=== PATIENT | female | born 1990 | race Caucasian/White ===

== ENCOUNTER 2016-11-11 16:33 | Emergency (ER) | payer BC, OTHER ==
[~2016-11-11 16:33] MED LIST: HYDR-3533 PO; PERC5TAB12 PO
[2016-11-11 17:01] VITALS: RESP 18; TEMP 98.3
[2016-11-11 17:02] VITALS: BP 136/79; PULSE 100
[2016-11-11 17:23] LABS: HEMATOCRIT 37.3 % (35.0-46.0); MEAN CELL VOLUME 84.3 FL (80.0-100.0); MEAN CORPUSCULAR HEMOGLOBIN 27.5 PG (27.0-34.0); MEAN CORPUSCULAR HGB CONC 32.5 % (32.0-36.0); PLATELET COUNT 278 TH/MM3 (150-450); RED BLOOD COUNT 4.43 MIL/MM3 (4.00-5.30); RED CELL DISTRIBUTION WIDTH 13.8 % (11.6-17.2); REVIEW FLAG FINAL; WHITE BLOOD COUNT 10.9 TH/MM3 (4.0-11.0)
[2016-11-11 17:24] VITALS: BP 129/78; PULSE 103
[2016-11-11 17:30] LABS: BACTERIA, URINE OCC /hpf; BLOOD, URINE NEG (NEG); COMMENT (UR) CULT NOT INDICATED; CULTURE IF INDICATED CULT NOT INDICATED; GLUCOSE,URINE NEG (NEG); KETONE, URINE NEG (NEG); NITRITE,URINE NEG (NEG); PH, URINE 6.5 (5.0-8.5); URINE COLOR YELLOW (YELLW/STRAW)
[2016-11-11 17:40] VITALS: BP 124/79; PULSE 103
--- NOTE | 2016-11-11 17:40 | PD ---
HPI Chief Complaint Pt is a , at 24 weeks. Pt was asked to present to OB triage by her OB after reporting that she had been sent home from work. Pt c/o headache and dizziness at work today.Per patient BP in the office was 140 /80. She states she has been having headaches for past one week. She denies any vision changes, no RUQ pain. Pt has no diagnosis of Hypertension, but states BP was 140/80 in OB office last week. Travel History International Travel<30 Days: No Contact w/Intl Traveler<30Days: No History of Present Illness Para: 0 : 1 History Past Medical History Medical History: Denies Significant Hx Past Surgical History Surgical History: No Previous Surgery Family History Family History: Negative Social History Alcohol Use: No Tobacco Use: No Substance Abuse: No Allergies-Medications (Allergen,Severity, Reaction): Coded Allergies: Adhesives (Unverified Allergy, Severe, 01/30/16) BANDAIDS,CERTAIN ADHESIVES,REDNESS,BLISTERS Dairy (Unverified Allergy, Severe, 01/30/16) ABDOMINAL PAIN Gluten (Unverified Allergy, Severe, DENIES ALLERGY, 01/30/16) Polysporin (Unverified Allergy, Severe, Rash, 01/30/16) Garlic (Verified Allergy, Intermediate, NASAL CONGESTION, 01/30/16) Peanut (Verified Allergy, Intermediate, HIVES/NASAL CONGESTION, 01/30/16) Uncoded Allergies: COUGH MEDICINE (Allergy, Intermediate, 01/31/14) RICHA (Allergy, Intermediate, NASAL CONGESTION, 01/30/16) Home Meds Active Scripts Hydrocodone/Acetaminophen 5 mg/325 mg (Lortab 5 mg/325 mg)1 Tab1 Tab PO Q6H PRN (PAIN) #10 TAB Prov:Jayro Pagan MD 01/30/16 Reported Medications Oxycodone-Acetaminophen 5-325 mg (Percocet 5-325 mg)Oxycodone 5/325 Acetaminophen Tab1 Tab PO Q6H PRN (PAIN) 01/30/14 Review of Systems HENT: Headaches Neurologic: Dizziness Physical Exam Vital Signs Date Time Temp Pulse Resp B/P Pulse Ox O2 Delivery O2 Flow Rate FiO2 11/11/16 17:24 103 129/78 11/11/16 17:02 100 136/79 11/11/16 17:01 98.3 18 Narrative GENERAL: Well-nourished, well-developed patient. SKIN: Warm and dry. HEAD: Normocephalic and atraumatic. EYES: No scleral icterus. No injection or drainage. ENT: No nasal drainage noted. Mucous membranes pink. Airway patent. NECK: Supple, trachea midline. No JVD. CARDIOVASCULAR: Regular rate and rhythm without murmurs, gallops, or rubs. RESPIRATORY: Breath sounds equal bilaterally. No accessory muscle use. BREASTS: Bilateral exam showed no masses , no retractions, no nipple discharge. ABDOMEN/GI: Abdomen soft, non-tender, bowel sounds present, no rebound, no guarding Gravid to [-] weeks size Fundal Height: [-] GENITOURINARY: External Genitalia: intact and normal in appearance BUS glands: [-] Cervix: [-] Dilatation: [-] Effacement: [-] Station: [-] Presentation: [-] Membranes: [intact or ruptured] Uterine Contractions: [-] FHT's: Category: [-] Baseline: [-] Reactive: [-] Variability: [-] Decels: [-] EXTREMITIES: No cyanosis or edema. BACK: Nontender without obvious deformity. No CVA tenderness. NEUROLOGICAL: Awake and alert. Motor and sensory grossly within normal limits. Five out of 5 muscle strength in all muscle groups. Normal speech. Data Data Vital Signs Reviewed: Yes Orders Hepatic Functional Panel (11/11/16 16:55) Cbc No Diff, Includes Plts (11/11/16 16:55) Uric Acid (11/11/16 16:55) Urinalysis - C+S If Indicated (11/11/16 16:55) Vital Signs (Adult) .ON ADMISSION (11/11/16 16:59) ^ Labor Status (11/11/16 16:59) Labs Laboratory Tests Test 11/11/16 16:53 White Blood Count 10.9 Red Blood Count 4.43 Hemoglobin 12.1 Hematocrit 37.3 Mean Corpuscular Volume 84.3 Mean Corpuscular Hemoglobin 27.5 Mean Corpuscular Hemoglobin 32.5 Concent Red Cell Distribution Width 13.8 Platelet Count 278 Mean Platelet Volume 7.6 Urine Color YELLOW Urine Turbidity CLEAR Urine pH 6.5 Urine Specific [place] 1.007 Urine Protein NEG Urine Glucose (UA) NEG Urine Ketones NEG Urine Occult Blood NEG Urine Nitrite NEG Urine Bilirubin NEG Urine Urobilinogen LESS THAN 2.0 Urine Leukocyte Esterase TRACE Urine RBC LESS THAN 1 Urine WBC 1 Urine Bacteria OCC Microscopic Urinalysis Comment CULT NOT INDICATED MDM Medical Record Reviewed: Yes Narrative Course / MDM BPs were all normal during her stay. Normal [place] DTRs Diagnosis Diagnosis: Primary Impression: Dizziness Additional Impression: Elevated BP without diagnosis of hypertension Disposition: 01 DISCHARGE HOME Condition: Good Patient Instructions: 24 Hour Urine Collection (GEN), General Instructions Additional Instructions: We plan 24 hour urine collection for total protein and creatinine clearance for baseline Patient told to make appointment with her OB for or Thursday Departure Forms: Tests/Procedures oDni Bob MD November 11, 2016 17:40
[2016-11-11 17:54] LABS: ALT (GPT) 55 U/L (10-53); AST (GOT) 38 U/L (15-37)
[2016-11-11 17:55] LABS: ALKALINE PHOSPHATASE 108 U/L (45-117); INDIRECT BILIRUBIN 0.1 MG/DL (0.0-0.8); TOTAL BILIRUBIN ADULT 0.2 MG/DL (0.2-1.0); URIC ACID 3.1 MG/DL (2.6-6.0)
== END 2016-11-11 18:22 | disposition home or self-care (01) ==
LOC: HOBED 16:33
DX: O99.89 Other specified diseases and conditions complicating pregnancy, childbirth and the puerperium (principal); R42 Dizziness and giddiness; R03.0 Elevated blood-pressure reading, without diagnosis of hypertension; R51 Headache; Z3A.24 24 weeks gestation of pregnancy
CPT/HCPCS: 80076; 81001; 84550; 85027; 99283

== ENCOUNTER → 2016-11-12 | Outpatient (CLI) | payer BC ==
[2016-11-12 22:25] LABS: URINE TOTAL PROTEIN TIMED 8.8 MG/DL
[2016-11-12 22:35] LABS: CREAT 24 TIMED 40.2 MG/DL
== END ==
LOC: HLAB 19:10
PROVIDERS: ATTEND Obstetrics & Gynecology
DX: O13.9 Gestational [pregnancy-induced] hypertension without significant proteinuria, unspecified trimester (principal); Z3A.00 Weeks of gestation of pregnancy not specified
CPT/HCPCS: 82575; 84157

== ENCOUNTER 2017-01-29 22:52 | Emergency (ER) | payer BC ==
[2017-01-29] MEDS ORDERED: MACR100C2 PO (23:52)
--- NOTE | 2017-01-29 23:52 | PD ---
HPI Chief Complaint Lower Abdominal pain for several hrs Date Seen: Jan 29, 2017 Travel History International Travel<30 Days: No Contact w/Intl Traveler<30Days: No Known Affected Area: No History of Present Illness HPI Patient is 26-year-old white female at [address] Newsome for care presents complaining of lower abdominal pain for several hours just at the symphysis area. Denies bleeding or ruptured membranes. heart rate tracing is reactive and she is an occasional contraction but no regular contractions. When asked where she hurts she points right at the symphysis in the midline that's where she's been hurting sharp pain comes and goes Para: 0 : 1 History Past Medical History Narrative Medical Patient had a UTI back in September of this year was treated with Macrobid by mouth Social History Alcohol Use: No Tobacco Use: No Substance Abuse: No Allergies-Medications (Allergen,Severity, Reaction): Coded Allergies: Adhesives (Unverified Allergy, Severe, 01/30/16) BANDAIDS,CERTAIN ADHESIVES,REDNESS,BLISTERS Dairy (Unverified Allergy, Severe, 01/30/16) ABDOMINAL PAIN Gluten (Unverified Allergy, Severe, DENIES ALLERGY, 01/30/16) Polysporin (Unverified Allergy, Severe, Rash, 01/30/16) Garlic (Verified Allergy, Intermediate, NASAL CONGESTION, 01/30/16) Peanut (Verified Allergy, Intermediate, HIVES/NASAL CONGESTION, 01/30/16) Uncoded Allergies: COUGH MEDICINE (Allergy, Intermediate, 01/31/14) RICHA (Allergy, Intermediate, NASAL CONGESTION, 01/30/16) Home Meds Active Scripts Hydrocodone/Acetaminophen 5 mg/325 mg (Lortab 5 mg/325 mg)1 Tab1 Tab PO Q6H PRN (PAIN) #10 TAB Prov:Jayro Pagan MD 01/30/16 Reported Medications Oxycodone-Acetaminophen 5-325 mg (Percocet 5-325 mg)Oxycodone 5/325 Acetaminophen Tab1 Tab PO Q6H PRN (PAIN) 01/30/14 Review of Systems General / Constitutional: No: Fever, Weight Gain, Chills, Other Eyes: No: Diploplia, Blurred Vision, Visual changes, Pain, Photophobia HENT: No: Headaches, Vertigo, Lightheadedness Cardiovascular: No: Irregular Rhythm, Chest Pain or Discomfort, Palpitations, Tachycardia, Syncope, Varicosities, Edema, Cyanosis Respiratory: No: Cough, Short of Breath, Other Gastrointestinal: Abdominal Pain, No: Nausea, Vomiting, Diarrhea Genitourinary: No: Decreased Urinary Output, Oliguria Musculoskeletal: No: Limited ROM, Weakness, Cramping, Edema, Pain Skin: No Rash, No Itching, No Dryness, No Lumps, No Change in Pigmentation, No Change in Nails, No Alopecia, No Lesions Neurologic: No: Weakness, Dizziness, Syncope, Focal Abnormalities, Coordination Problem, Headache, Slurred Speech, Seizures Psychiatric: No: Depression, Suicidal Ideations, Homicidal Ideation Endocrine: No: Heat Intolerance, Cold Intolerance, Polydipsia, Polyuria, Other Physical Exam Narrative GENERAL: Well-nourished, well-developed patient. SKIN: Warm and dry. HEAD: Normocephalic and atraumatic. EYES: No scleral icterus. No injection or drainage. ENT: No nasal drainage noted. Mucous membranes pink. Airway patent. NECK: Supple, trachea midline. No JVD. CARDIOVASCULAR: Regular rate and rhythm without murmurs, gallops, or rubs. RESPIRATORY: Breath sounds equal bilaterally. No accessory muscle use. BREASTS: Bilateral exam showed no masses , no retractions, no nipple discharge. ABDOMEN/GI: Abdomen soft, non-tender, bowel sounds present, no rebound, no guarding Gravid to [-35] weeks size Fundal Height: [35-] GENITOURINARY: External Genitalia: intact and normal in appearance BUS glands: [-] Cervix: [Posterior-] Dilatation: [-Closed] Effacement: [-] Thick Station: [-3] Presentation: [vtx-] Membranes: [intact ] Uterine Contractions: [Occasional-] FHT's: Category: [1-] Baseline: [133-] Reactive: [yes-] Variability: [mod-] Decels: [none-] EXTREMITIES: No cyanosis or edema. BACK: Nontender without obvious deformity. No CVA tenderness. NEUROLOGICAL: Awake and alert. Motor and sensory grossly within normal limits. Five out of 5 muscle strength in all muscle groups. Normal speech. Data Data Labs Urine dip was positive for large leukocyte esterase all else negative, urine sent labs pending at this time MDM Interpretation(s) Patient 26-year-old white female at 35 weeks presents clinically with lower abdominal pain for several hours. She is not beto at this point heart rate tracing is reactive cervix is closed and posterior. She's had no bleeding or leakage of fluid. She has not tried Tylenol or any measures at home to help her pain. Urine dipstick on OB ED was positive for leukocyte esterase. Urine from downstairs labs pending at this time but with her history of UTI back in September and treatment with Macrobid ,. Plan to repeat Macrobid another course for a week by mouth twice a day. She is offered a pain shot fentanyl IM if she wants relief. Plan The patient to repeat her week of Macrobid by mouth, offered fentanyl shot for pain tonight and she is thinking about that at this time. She is to increase bedrest over the next 48 hours increase fluids by mouth and the take Tylenol liberally. She can use a heating pad on low across the lower abdomen or soak in a hot bath tub for relief of symptoms Diagnosis Diagnosis: Primary Impression: 35 weeks gestation of Additional Impressions: Lower abdominal pain, unspecified UTI (urinary tract infection) in in third trimester Disposition: 01 DISCHARGE HOME Condition: Stable Scripts Nitrofurantoin Monohydrate Macrocrystals (Macrobid)100 Mg [id number] Mg PO BID #14 CAP Ref 0 Prov:Haroldo Che II, MD 01/29/17 Patient Instructions: General Instructions, Early Labor Signs (ED), Movement (ED), Urinary Tract Infection in (ED) Departure Forms: Tests/Procedures Haroldo Che II, MD Jan 29, 2017 23:52
== END 2017-01-30 00:13 | disposition home or self-care (01) ==
LOC: HOBED 22:52
DX: O26.893 Other specified pregnancy related conditions, third trimester (principal); R10.30 Lower abdominal pain, unspecified; O23.43 Unspecified infection of urinary tract in pregnancy, third trimester; Z3A.35 35 weeks gestation of pregnancy
CPT/HCPCS: 59025

== ENCOUNTER 2017-02-17 16:18 | Emergency (ER) | payer BC ==
[~2017-02-17] VITALS: Ht 162.6 cm; Wt 78.0 kg
[~2017-02-17 16:18] MED LIST changes: +MACR100C2 PO
[2017-02-17 16:43] VITALS: BP 130/89; PULSE 98
[2017-02-17 16:44] VITALS: RESP 18
[2017-02-17 16:45] VITALS: TEMP 98.2
[2017-02-17 17:26] LABS: BACTERIA, URINE FEW /hpf; BLOOD, URINE NEG (NEG); COMMENT (UR) CULT NOT INDICATED; CULTURE IF INDICATED CULT NOT INDICATED; GLUCOSE,URINE NEG (NEG); KETONE, URINE NEG (NEG); NITRITE,URINE NEG (NEG); PH, URINE 6.5 (5.0-8.5); SQUAMOUS EPITHELIAL CELL URINE 1 /hpf (0-5); URINE COLOR LIGHT-YELLOW (YELLW/STRAW)
[2017-02-17 17:43] LABS: HEMATOCRIT 36.5 % (35.0-46.0); MEAN CELL VOLUME 76.8 FL (80.0-100.0); MEAN CORPUSCULAR HEMOGLOBIN 24.9 PG (27.0-34.0); MEAN CORPUSCULAR HGB CONC 32.4 % (32.0-36.0); PLATELET COUNT 198 TH/MM3 (150-450); RED BLOOD COUNT 4.75 MIL/MM3 (4.00-5.30); RED CELL DISTRIBUTION WIDTH 16.8 % (11.6-17.2); REVIEW FLAG FINAL; WHITE BLOOD COUNT 8.3 TH/MM3 (4.0-11.0)
[2017-02-17 17:49] LABS: ANION GAP 7 MEQ/L (5-15); AST (GOT) 18 U/L (15-37); BLOOD UREA NITROGEN 8 MG/DL (7-18); CHLORIDE 106 MEQ/L (98-107); GLOMERULAR FILTRATION RATE 102 ML/MIN (>89); POTASSIUM 3.6 MEQ/L (3.5-5.1); SODIUM (NA) 139 MEQ/L (136-145); URIC ACID 4.3 MG/DL (2.6-6.0)
[2017-02-17 17:53] LABS: ALKALINE PHOSPHATASE 233 U/L (45-117); ALT (GPT) 19 U/L (10-53); TOTAL BILIRUBIN ADULT 0.2 MG/DL (0.2-1.0)
--- NOTE | 2017-02-17 17:58 | HHI.HP ---
HPI Chief Complaint Elevated BP in the office Note entered in error, see [facility]SC[facility] note Travel History International Travel<30 Days: No Contact w/Intl Traveler<30Days: No Known Affected Area: No Allergies-Medications (Allergen,Severity, Reaction): Coded Allergies: adhesive (Verified Allergy, Severe, 02/17/17) BANDAIDS,CERTAIN ADHESIVES,REDNESS,BLISTERS bacitracin (Verified Allergy, Severe, Rash, 02/17/17) gluten (Verified Allergy, Severe, DENIES ALLERGY, 02/17/17) lactose (Verified Allergy, Severe, 02/17/17) ABDOMINAL PAIN peanut (Verified Allergy, Severe, hives, blisters, 02/17/17) polymyxin B (Verified Allergy, Severe, Rash, 02/17/17) garlic (Verified Allergy, Intermediate, NASAL CONGESTION, 02/17/17) ipratropium (Verified Allergy, Intermediate, HIVES/NASAL CONGESTION, ) Uncoded Allergies: COUGH MEDICINE (Allergy, Intermediate, 01/31/14) RICHA (Allergy, Intermediate, NASAL CONGESTION, 01/30/16) Home Meds Active Scripts Nitrofurantoin Monohydrate Macrocrystals (Macrobid) 100 Mg Cap, 100 MG PO BID for Infection, #14 CAP 0 Refills Prov:Haroldo Che II, MD 01/29/17 Hydrocodone/Acetaminophen 5 mg/325 mg (Lortab 5 mg/325 mg) 1 Tab, 1 TAB PO Q6H Y for PAIN, #10 TAB Prov:Jayro Pagan MD 01/30/16 Reported Medications Oxycodone-Acetaminophen 5-325 mg (Percocet 5-325 mg) Oxycodone 5/325 Acetaminophen Tab, 1 TAB PO Q6H Y for PAIN, TAB 01/30/14 Physical Exam Vital Signs Date Time Temp Pulse Resp B/P (MAP) Pulse Ox O2 Delivery O2 Flow Rate FiO2 02/17/17 16:44 18 02/17/17 16:43 98 130/89 (103) Narrative GENERAL: Well-nourished, well-developed patient. SKIN: Warm and dry. HEAD: Normocephalic and atraumatic. EYES: No scleral icterus. No injection or drainage. ENT: No nasal drainage noted. Mucous membranes pink. Airway patent. NECK: Supple, trachea midline. No JVD. CARDIOVASCULAR: Regular rate and rhythm without murmurs, gallops, or rubs. RESPIRATORY: Breath sounds equal bilaterally. No accessory muscle use. BREASTS: Bilateral exam showed no masses , no retractions, no nipple discharge. ABDOMEN/GI: Abdomen soft, non-tender, bowel sounds present, no rebound, no guarding Gravid to [-] weeks size Fundal Height: [-] GENITOURINARY: External Genitalia: intact and normal in appearance BUS glands: [-] Cervix: [-] Dilatation: [-] Effacement: [-] Station: [-] Presentation: [-] Membranes: [intact or ruptured] Uterine Contractions: [-] FHT's: Category: [-] Baseline: [-] Reactive: [-] Variability: [-] Decels: [-] EXTREMITIES: No cyanosis or edema. BACK: Nontender without obvious deformity. No CVA tenderness. NEUROLOGICAL: Awake and alert. Motor and sensory grossly within normal limits. Five out of 5 muscle strength in all muscle groups. Normal speech. Caprini VTE Risk Assessment Caprini Risk Assessment Model Point Value = 1 Point Value = 2 Point Value = 3 Point Value = 5 Age 41-60 Minor surgery BMI > 25 kg/m2 Swollen legs Varicose veins or History of unexplained or recurrent spontaneous Oral contraceptives or hormone replacement Sepsis (< 1 month) Serious lung disease, including pneumonia (< 1 month) Abnormal pulmonary function Acute myocardial infarction Congestive heart failure (< 1 month) History of inflammatory bowel disease Medical patient at bed rest Age 61-74 Arthroscopic surgery Major open surgery (> 45 min) Laparoscopic surgery (> 45 min) Malignancy Confined to bed (> 72 hours) Immobilizing plaster cast Central venous access Age >= 75 History of VTE Family history of VTE Factor V Leiden Prothrombin [id number] Lupus anticoagulant Anticardiolipin antibodies Elevated serum homocysteine Heparin-induced thrombocytopenia Other congenital or acquired thrombophilia Stroke (< 1 month) Elective arthroplasty Hip, pelvis, or leg fracture Acute spinal cord injury (< 1 month) Prophylaxis Regimen Total Risk Factor Score Risk Level Prophylaxis Regimen 0-1 Low Early ambulation 2 Moderate Order ONE of the following: *Sequential Compression Device (SCD) *Heparin 5000 units SQ BID 3-4 Higher Order ONE of the following medications: *Heparin 5000 units SQ TID *Enoxaparin/Lovenox 40 mg SQ daily (WT < 150 kg, CrCl > 30 mL/min) *Enoxaparin/Lovenox 30 mg SQ daily (WT < 150 kg, CrCl > 10-29 mL/min) *Enoxaparin/Lovenox 30 mg SQ BID (WT < 150 kg, CrCl > 30 mL/min) AND/OR *Sequential Compression Device (SCD) 5 or more Highest Order ONE of the following medications: *Heparin 5000 units SQ TID (Preferred with Epidurals) *Enoxaparin/Lovenox 40 mg SQ daily (WT < 150 kg, CrCl > 30 mL/min) *Enoxaparin/Lovenox 30 mg SQ daily (WT < 150 kg, CrCl > 10-29 mL/min) *Enoxaparin/Lovenox 30 mg SQ BID (WT < 150 kg, CrCl > 30 mL/min) AND *Sequential Compression Device (SCD) Data Data Orders Orders Vital Signs (Adult) .ON ADMISSION (02/17/17 16:33) ^ Labor Status (02/17/17 16:33) Urinalysis - C+S If Indicated (02/17/17 16:33) Diet Liquid (02/17/17 Dinner) Cbc No Diff, Includes Plts (02/17/17 16:33) Comprehensive Metabolic Panel (02/17/17 16:33) Uric Acid (02/17/17 16:33) Protein Creat Ratio, Random Ur (02/17/17 16:33) Labs Laboratory Tests Test 02/17/17 16:40 White Blood Count 8.3 Red Blood Count 4.75 Hemoglobin 11.8 Hematocrit 36.5 Mean Corpuscular Volume 76.8 Mean Corpuscular Hemoglobin 24.9 Mean Corpuscular Hemoglobin Concent 32.4 Red Cell Distribution Width 16.8 Platelet Count 198 Mean Platelet Volume 8.5 Urine Color LIGHT-YELLOW Urine Turbidity CLEAR Urine pH 6.5 Urine Specific [place] 1.004 Urine Protein NEG Urine Glucose (UA) NEG Urine Ketones NEG Urine Occult Blood NEG Urine Nitrite NEG Urine Bilirubin NEG Urine Urobilinogen LESS THAN 2.0 Urine Leukocyte Esterase MOD Urine RBC 1 Urine WBC 2 Urine Squamous Epithelial Cells 1 Urine Bacteria FEW Microscopic Urinalysis Comment CULT NOT INDICATED Urine Random Creatinine 18 Urine Random Total Protein LESS THAN 5 Urine Protein/Creatinine Ratio 0.28 Blood Urea Nitrogen 8 Creatinine 0.69 Random Glucose 87 Total Protein 6.9 Albumin 2.7 Calcium Level 8.9 Uric Acid 4.3 Alkaline Phosphatase 233 Aspartate Amino Transf (AST/SGOT) 18 Alanine Aminotransferase (ALT/SGPT) 19 Total Bilirubin 0.2 Sodium Level 139 Potassium Level 3.6 Chloride Level 106 Carbon Dioxide Level 26.0 Anion Gap 7 Estimat Glomerular Filtration Rate 102 Danni Burgos MD Feb 17, 2017 17:58
--- NOTE | 2017-02-17 18:02 | HHI.PR ---
Subjective Remarks NST procedure note Indications: IUP at 38w, elevated BP, asthma Baseline: 130s, moderate LTV, good accels, no decels Irregular ctx Final Dx: IUP at 38w, reassuring testing, no evidence of preeclampsia F/U as clinically indicated Objective Vital Signs Date Time Temp Pulse Resp B/P (MAP) Pulse Ox O2 Delivery O2 Flow Rate FiO2 02/17/17 16:44 18 02/17/17 16:43 98 130/89 (103) Result Diagram: 02/17/17 1640 02/17/17 1640 Danni Burgos MD Feb 17, 2017 18:02
--- NOTE | 2017-02-17 18:25 | PD ---
HPI Chief Complaint Elevated BP in the office Travel History International Travel<30 Days: No Contact w/Intl Traveler<30Days: No Known Affected Area: No History of Present Illness HPI 26y/o , IUP at 37.6 PNC complicated by asthma Patient presents from the office for evaluation of elevated BP in the office. She reports her BP in the office was 150/100. She denies any MARS, visual changes , RUQ or epigastric pain. She reports normal FM. She denies any ctx, LOF, or VB. She has no other concerns today Weeks Gestation: 37 Para: 0 : 1 History Past Medical History Narrative Medical Asthma Endometriosis Obstetric History Obstetric History Past Surgical History Narrative Surgical L/S x2 Bladder dilation x6-8 Colpo x2 Bladder scope Family History Narrative Family History Cervical CA HTN Social History Alcohol Use: No Tobacco Use: No Substance Abuse: No Allergies-Medications (Allergen,Severity, Reaction): Coded Allergies: adhesive (Verified Allergy, Severe, 02/17/17) BANDAIDS,CERTAIN ADHESIVES,REDNESS,BLISTERS bacitracin (Verified Allergy, Severe, Rash, 02/17/17) gluten (Verified Allergy, Severe, DENIES ALLERGY, 02/17/17) lactose (Verified Allergy, Severe, 02/17/17) ABDOMINAL PAIN peanut (Verified Allergy, Severe, hives, blisters, 02/17/17) polymyxin B (Verified Allergy, Severe, Rash, 02/17/17) garlic (Verified Allergy, Intermediate, NASAL CONGESTION, 02/17/17) ipratropium (Verified Allergy, Intermediate, HIVES/NASAL CONGESTION, ) Uncoded Allergies: COUGH MEDICINE (Allergy, Intermediate, 01/31/14) RICHA (Allergy, Intermediate, NASAL CONGESTION, 01/30/16) Home Meds Active Scripts Nitrofurantoin Monohydrate Macrocrystals (Macrobid) 100 Mg Cap, 100 MG PO BID for Infection, #14 CAP 0 Refills Prov:Haroldo Che II, MD 01/29/17 Hydrocodone/Acetaminophen 5 mg/325 mg (Lortab 5 mg/325 mg) 1 Tab, 1 TAB PO Q6H Y for PAIN, #10 TAB Prov:Jayro Pagan MD 01/30/16 Reported Medications Oxycodone-Acetaminophen 5-325 mg (Percocet 5-325 mg) Oxycodone 5/325 Acetaminophen Tab, 1 TAB PO Q6H Y for PAIN, TAB 01/30/14 Review of Systems Except as stated in HPI: all other systems reviewed are Neg Physical Exam Vital Signs Date Time Temp Pulse Resp B/P (MAP) Pulse Ox O2 Delivery O2 Flow Rate FiO2 02/17/17 16:44 18 02/17/17 16:43 98 130/89 (103) Narrative GENERAL: Well-nourished, well-developed patient. SKIN: Warm and dry. HEAD: Normocephalic and atraumatic. EYES: No scleral icterus. No injection or drainage. ENT: No nasal drainage noted. Mucous membranes pink. Airway patent. NECK: Supple, trachea midline. No JVD. CARDIOVASCULAR: Regular rate and rhythm without murmurs, gallops, or rubs. RESPIRATORY: Breath sounds equal bilaterally. No accessory muscle use. BREASTS: deferred ABDOMEN/GI: Abdomen soft, non-tender, bowel sounds present, no rebound, no guarding Gravid GENITOURINARY: deferred FHT's: 130s, category1/reactive NST EXTREMITIES: No cyanosis. 1+-2+ edema. BACK: Nontender without obvious deformity. No CVA tenderness. NEUROLOGICAL: Awake and alert. Motor and sensory grossly within normal limits. Five out of 5 muscle strength in all muscle groups. Normal speech. No clonus PSYCH: grossly normal memory/affect MS: grossly normal ROM, gait, muscle strength Data Data Orders Orders Vital Signs (Adult) .ON ADMISSION (02/17/17 16:33) ^ Labor Status (02/17/17 16:33) Urinalysis - C+S If Indicated (02/17/17 16:33) Diet Liquid (02/17/17 Dinner) Cbc No Diff, Includes Plts (02/17/17 16:33) Comprehensive Metabolic Panel (02/17/17 16:33) Uric Acid (02/17/17 16:33) Protein Creat Ratio, Random Ur (02/17/17 16:33) Labs Laboratory Tests Test 02/17/17 16:40 White Blood Count 8.3 Red Blood Count 4.75 Hemoglobin 11.8 Hematocrit 36.5 Mean Corpuscular Volume 76.8 Mean Corpuscular Hemoglobin 24.9 Mean Corpuscular Hemoglobin Concent 32.4 Red Cell Distribution Width 16.8 Platelet Count 198 Mean Platelet Volume 8.5 Urine Color LIGHT-YELLOW Urine Turbidity CLEAR Urine pH 6.5 Urine Specific [place] 1.004 Urine Protein NEG Urine Glucose (UA) NEG Urine Ketones NEG Urine Occult Blood NEG Urine Nitrite NEG Urine Bilirubin NEG Urine Urobilinogen LESS THAN 2.0 Urine Leukocyte Esterase MOD Urine RBC 1 Urine WBC 2 Urine Squamous Epithelial Cells 1 Urine Bacteria FEW Microscopic Urinalysis Comment CULT NOT INDICATED Urine Random Creatinine 18 Urine Random Total Protein LESS THAN 5 Urine Protein/Creatinine Ratio 0.28 Blood Urea Nitrogen 8 Creatinine 0.69 Random Glucose 87 Total Protein 6.9 Albumin 2.7 Calcium Level 8.9 Uric Acid 4.3 Alkaline Phosphatase 233 Aspartate Amino Transf (AST/SGOT) 18 Alanine Aminotransferase (ALT/SGPT) 19 Total Bilirubin 0.2 Sodium Level 139 Potassium Level 3.6 Chloride Level 106 Carbon Dioxide Level 26.0 Anion Gap 7 Estimat Glomerular Filtration Rate 102 MDM Plan A/P: 26y/o 1. IUP at 37.6 2. Elevated BP: normal BP on evaluation here, normal labs without evidence of preeclampsia, PC ratio 0.28 but still below threshold of <0.3, discussed with Dr. Newsome and will follow up with 24h urine, strict preeclampsia precatuions, moderate bedrest 3. wellbeing: reassuring testing with reactive NST, FHR reassuring and appropriate for gestational age, FKC daily 4. Asthma: no current issues 5. F/U with primary OB in 2-3d or sooner if needed Diagnosis Diagnosis: Primary Impression: 38 weeks gestation of Additional Impression: Gestational [-induced] hypertension without significant proteinuria, third trimester Disposition: DISCHARGE HOME Patient Instructions: Movement (ED), Preeclampsia (ED), Early Labor Signs (ED) Additional Instructions: F/U with primary Ob in 3d or sooner if needed, strict preeclampsia precautions, FKC daily. 24h urine collection. modified bedrest. Danni Burgos MD Feb 17, 2017 18:25
== END 2017-02-17 19:03 | disposition home or self-care (01) ==
LOC: HOBED 16:18
DX: O13.3 Gestational [pregnancy-induced] hypertension without significant proteinuria, third trimester (principal); J45.909 Unspecified asthma, uncomplicated; Z3A.38 38 weeks gestation of pregnancy; Z79.899 Other long term (current) drug therapy
CPT/HCPCS: 36415; 59025; 80053; 81001; 82570; 84156; 84550; 85027

== ENCOUNTER 2017-03-10 15:41 | Inpatient (IN) | payer BC ==
[~2017-03-10] VITALS: Ht 162.6 cm; Wt 78.0 kg
[2017-03-10] MEDS ORDERED: CITRIC ACID-SODIUM CITRATE LIQ 30 ML UDC PO SCH (17:30)
[2017-03-10] MEDS: PENICILLIN G POTASSIUM INJ 5,000,000 UNITS in SODIUM CHLORIDE 0.9% INJ 100 ML IV ONE (17:30)
[2017-03-10] MEDS ORDERED: OXYTOCIN 30 UNITS-500ML PREMIX 500 ML IV ONE (17:30)
[2017-03-10] MEDS ORDERED: SODIUM CHLORID 0.9% 500 ML INJ 500 ML IV PRN (17:30)
[2017-03-10] MEDS ORDERED: SODIUM CHLORIDE 0.9% FLUSH 10 ML FLUSH IV FLUSH PRN (17:30)
[2017-03-10] MEDS ORDERED: LACTATED RINGER'S 1000 ML INJ 1,000 ML IV PRN (17:30)
[2017-03-10] MEDS ORDERED: MISOPROSTOL 25 MCG SUPP VAGINAL ONE ×2 (17:30→23:15)
[2017-03-10] MEDS ORDERED: ZOLPIDEM TARTRATE 5 MG TAB PO PRN (17:30)
[2017-03-10] MEDS ORDERED: LIDOCAINE HCL 1% 50 ML VIAL I-DERMAL PRN (17:30)
[2017-03-10] MEDS ORDERED: MINERAL OIL 10 ML VIAL TOPICAL PRN (17:30)
[2017-03-10] MEDS ORDERED: LIDOCAINE HCL 1% 50 ML VIAL INFIL PRN (17:30)
[2017-03-10] MEDS ORDERED: SODIUM CHLOR 0.9% 1000 ML INJ 1,000 ML IV PRN (17:50)
[2017-03-10] MEDS: LACTATED RINGER'S 1000 ML INJ 1,000 ML IV SCH (18:52)
[2017-03-10 18:53] LABS: AUTOMATED NEUTROPHIL # 7.8 TH/MM3 (1.8-7.7); BASOPHIL % 0.3 % (0.0-2.0); EOSINOPHIL % 0.3 % (0.0-4.0); HEMATOCRIT 38.4 % (35.0-46.0); HEMO FLAGS DIFF FINAL; LYMPH % 18.6 % (9.0-44.0); LYMPHOCYTE # 1.9 TH/MM3 (1.0-4.8); MEAN CELL VOLUME 77.3 FL (80.0-100.0); MEAN CORPUSCULAR HEMOGLOBIN 25.3 PG (27.0-34.0); MEAN CORPUSCULAR HGB CONC 32.7 % (32.0-36.0); MONO % 4.9 % (0.0-8.0); NEUT % 75.9 % (16.0-70.0); PLATELET COUNT 210 TH/MM3 (150-450); RED BLOOD COUNT 4.97 MIL/MM3 (4.00-5.30); RED CELL DISTRIBUTION WIDTH 18.5 % (11.6-17.2); WHITE BLOOD COUNT 10.3 TH/MM3 (4.0-11.0)
[2017-03-10 19:03] LABS: BACTERIA, URINE MOD /hpf; BLOOD, URINE NEG (NEG); COMMENT (UR) CULTURE INDICATED; CULTURE IF INDICATED CULTURE INDICATED; GLUCOSE,URINE NEG (NEG); KETONE, URINE NEG (NEG); NITRITE,URINE NEG (NEG); PH, URINE 6.5 (5.0-8.5); SQUAMOUS EPITHELIAL CELL URINE 4 /hpf (0-5); URINE COLOR LIGHT-YELLOW (YELLW/STRAW)
[2017-03-10 19:16] LABS: ALT (GPT) 21 U/L (10-53); ANION GAP 10 MEQ/L (5-15); AST (GOT) 18 U/L (15-37); BICARBONATE 24.3 MEQ/L (21.0-32.0); BLOOD UREA NITROGEN 5 MG/DL (7-18); CHLORIDE 103 MEQ/L (98-107); GLOMERULAR FILTRATION RATE 124 ML/MIN (>89); POTASSIUM 3.6 MEQ/L (3.5-5.1); SODIUM (NA) 137 MEQ/L (136-145)
[2017-03-10 19:18] LABS: ALKALINE PHOSPHATASE 270 U/L (45-117); TOTAL BILIRUBIN ADULT 0.3 MG/DL (0.2-1.0)
[2017-03-10] MEDS ORDERED: PREN1CAP28 PO (20:11)
[2017-03-10] MEDS ORDERED: SODIUM CHLORIDE 0.9% FLUSH 10 ML FLUSH IV FLUSH SCH (21:00)
--- NOTE | 2017-03-10 21:03 | MH ---
cc: Tony NEWSOME MD DATE OF ADMISSION 03/10/2017 ADMISSION DIAGNOSIS 1. Intrauterine at 40 weeks, 6 days. 2. Postdates. 3. Increased blood pressure , rule out preeclampsia. 4. Positive GBS. HISTORY OF PRESENT ILLNESS The patient is a 27-year-old white female para 0-0-0-0 who is at 40 weeks, 6 days. She is being brought to the hospital for cervical ripening and to rule out preeclampsia. She was seen in the office today and had a fairly high blood pressure, was sent her over to labor and delivery with a direct admission because she is going to be induced tonight anyways because she is hitting 41 weeks in several hours. She understands the risks and the benefits of the induction including the increased risk of section and prolonged labor. In terms of her blood pressure she has had some higher blood pressures recently and they may just be labile. She has no signs or symptoms of preeclampsia and we are going to go ahead and evaluate that more fully with lab work and serial blood pressures. PAST OBSTETRICAL HISTORY Para 0-0-0-0. PAST GYNECOLOGIC HISTORY She has a history of LGSIL on Pap smear. Her CTGC and __ are all negative in 10/06. PAST SURGICAL HISTORY [place] teeth. Laparoscopy 2008, 2013, 2015. Urethral dilation several times. PAST MEDICAL HISTORY Remarkable for dysplastic nevi, asthma. She has not used medicines in october years. Frequent urinary tract infections. SOCIAL HISTORY She is single. She has never smoked. She does not drink. 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 FAMILY HISTORY Remarkable for high blood pressure depression and cleft palate. PHYSICAL EXAMINATION GENERAL: Well-developed, well-nourished female in no acute distress. VITAL SIGNS: Blood pressure 142/98. Her pulse was 106, respirations 18. HEENT: Normocephalic, atraumatic. NECK: Supple, trachea is in the midline. CHEST: Clear to auscultation, percussion. HEART: Regular rate and rhythm. DIRECTED EXAMINATION: The abdomen is gravid, nontender. The height is appropriate for the gestational age. Her cervix is fingertip, very posterior, 30% effaced, vertex -3. EXTREMITIES: No clubbing, cyanosis, edema. DTRs are +1. ASSESSMENT/PLAN 1. Intrauterine postdates for induction tonight. 2. Possible preeclampsia. I will go ahead and check her labs. She may did have -induced hypertension. If her labs warrant I will give her mag sulfate, will try to avoid that if possible. 3. Positive GBS, will treat her once she is in active labor. R. Pradeep Newsome MD RJV/ERASMO /8:22 PM /8:44 PM
[2017-03-10] MEDS ORDERED: PENICILLIN G POTASSIUM INJ 2,500,000 UNITS in SODIUM CHLORIDE 0.9% INJ 100 ML IV SCH (22:00)
[2017-03-10] MEDS ORDERED: MISOPROSTOL 25 MCG SUPP - repeat dose VAGINAL PRN (23:15)
[2017-03-11] MEDS: LACTATED RINGER'S 1000 ML INJ 1,000 ML IV SCH ×3 (01:30→10:55)
[2017-03-11] MEDS: PENICILLIN G POTASSIUM INJ 5,000,000 UNITS in SODIUM CHLORIDE 0.9% INJ 100 ML IV ONE (04:00)
[2017-03-11] MEDS ORDERED: PENICILLIN G POT 5,000,000 UNITS/NS 100 ML(Mini-Bag Plus) IV ONE ×2 (04:30)
[2017-03-11] MEDS ORDERED: OXYTOCIN 30 UNITS/NS 500ML PREMIX IV SCH (05:30)
[2017-03-11] MEDS ORDERED: MEPERIDINE HCL 50 MG/ML VIAL ONE (08:28)
[2017-03-11] MEDS ORDERED: fentaNYL 2MCG-BUPIV 0.125% INJ 100 ML ONE (08:43)
[2017-03-11] MEDS ORDERED: ePHEDrine/NS 25 MG/5 ML SYR ONE (08:43)
[2017-03-11] MEDS ORDERED: PENICILLIN G POT 2,500,000 UNITS/NS 100 ML IV SCH ×2 (09:00)
[2017-03-11] MEDS ORDERED: PNEUMOCOCCAL POLYVALENT INJ 25 MCG/0.5 ML SYR IM ONE (10:00)
[2017-03-11] MEDS ORDERED: WITCH HAZEL 50%/GLYCERIN 12.5% 40 PAD JAR TOPICAL PRN (12:15)
[2017-03-11] MEDS ORDERED: ZOLPIDEM TARTRATE 5 MG TAB PO PRN (12:15)
[2017-03-11] MEDS ORDERED: ALUMINUM/MAGNESIUM/SIMETH 30 ML CUP PO PRN (12:15)
[2017-03-11] MEDS ORDERED: BENZOCAINE 20% TOPICAL SPRAY 60 ML CAN TOPICAL PRN (12:15)
[2017-03-11] MEDS ORDERED: ONDANSETRON ODT 4 MG TAB PO PRN (12:15)
[2017-03-11] MEDS ORDERED: DOCUSATE SODIUM 50 MG/SENNA 8.6 MG TAB PO PRN (12:15)
[2017-03-11] MEDS ORDERED: SODIUM CHLORIDE 0.9% FLUSH 10 ML FLUSH IV FLUSH PRN (12:15)
[2017-03-11] MEDS ORDERED: oxyCODONE/ACETAMINOPHEN 5 MG/325 MG TAB PO PRN (12:15)
--- NOTE | 2017-03-11 12:15 | PD.OB.DELI ---
Weeks gestation: 41 Gest age assessed date: Mar 11, 2017 Gest age assessed time: 05:00 Pt started active labor?: Yes Medical induction of labor?: Yes Medical induction start date: Mar 10, 2017 Artificial rupture of membrane: No Anesthesia: Epidural Episiotomy: None Vaginal Delivery: Normal Presentation: Occiput anterior Nuchal Cord: x1 Delayed cord clamping (45 sec): Yes : Male Delivery date: Mar 11, 2017 Delivery time: 11:47 One Minute : 9 Five Minute : 9 Weight: Delayed for skin to skin Placenta: Spontaneous delivery, Intact, 3 vessel cord Laceration: Vaginal laceration, Perineal laceration, 2 deg Repair: Vicryl running Estimated blood loss: 250cc Additional Information Baby Simone Supervised by Dr. Newsome. (Patricia Garcia MD, R3) Weight: 7/11 (Tony Newsome MD) Patricia Garcia MD, R3 Mar 11, 2017 12:15 Tony Newsome MD Mar 23, 2017 09:37
[2017-03-11] MEDS ORDERED: OXYTOCIN 30 UNITS-500ML PREMIX 500 ML IV SCH (13:00)
[2017-03-11] MEDS: ACETAMINOPHEN 325 MG TAB PO PRN (15:24)
[2017-03-11] MEDS: IBUPROFEN 600 MG TAB PO PRN (15:24)
[2017-03-11] MEDS ORDERED: MEASLES, MUMPS, RUBELLA VACCINE 0.5 ML VIAL SQ ONE (16:00)
[2017-03-11] MEDS ORDERED: DIPHTH/TETANUS/ACEL PERTUSSIS (BOOSTER) 0.5 ML VIAL/PFS IM ONE (16:00)
[2017-03-11] MEDS: oxyCODONE/ACETAMINOPHEN 5 MG/325 MG TAB PO PRN (20:11)
[2017-03-11] MEDS ORDERED: SODIUM CHLORIDE 0.9% FLUSH 10 ML FLUSH IV FLUSH SCH (21:00)
[2017-03-12] MEDS: IBUPROFEN 600 MG TAB PO PRN ×5 (00:40→23:29)
[2017-03-12] MEDS: oxyCODONE/ACETAMINOPHEN 5 MG/325 MG TAB PO PRN ×5 (00:40→23:29)
--- NOTE | 2017-03-12 14:09 | HHI.OB ---
Subjective Post Day: 1 Objective Vitals/I&O PB's ' 140's/80's 10am 148/82 P 85 T. 98.3 Objective Remarks GENERAL: Well-nourished, well-developed patient. CARDIOVASCULAR: Regular rate and rhythm without murmurs, gallops, or rubs. RESPIRATORY: Breath sounds equal bilaterally. No accessory muscle use. ABDOMEN/GI: Abdomen soft, non-tender. Fundus: Firm, non-tender at umbilicus. GENITOURINARY: Light to moderate bleeding. EXTREMITIES: No cyanosis or slight edema to lower extremities, non-tender, without signs of DVT. Medications and IVs Current Medications Medications (Trade) Dose Ordered Sig/Shraddha Route Start Time Stop Time Status Last Admin (Xylocaine 1% Inj (50 ml)) 0.1 ml UNSCH X1 PRN I-DERMAL 03/10/17 17:30 03/13/17 17:29 (Bicitra Liq) 30 ml FREIGHT FORWARDER PO 03/10/17 17:30 03/14/17 17:29 (Xylocaine 1% Inj (50 ml)) 10 ml UNSCH X1 PRN INFIL 03/10/17 17:30 03/12/17 17:29 (NS Flush) 2 ml BID IV FLUSH 03/11/17 21:00 (NS Flush) 2 ml UNSCH PRN IV FLUSH 03/11/17 12:15 (Tylenol) 650 mg Q4H PRN PO 03/11/17 12:15 03/11/17 15:24 (Motrin) 600 mg Q6H PRN PO 03/11/17 12:15 03/12/17 13:39 (Percocet 5-325 Mg) 1 tab Q4H PRN PO 03/11/17 12:15 03/12/17 12:25 (Percocet 5-325 Mg) 2 tab Q4H PRN PO 03/11/17 12:15 (Americaine 20% Top Spr) 1 spray Q4H PRN TOPICAL 03/11/17 12:15 (Tucks Pads) 1 applic QID PRN TOPICAL 03/11/17 12:15 (Tami-Colace) 2 tab Q12H PRN PO 03/11/17 12:15 (Ambien) 5 mg HS PRN PO 03/11/17 12:15 (Mag-Al Plus Susp Liq) 15 ml Q8H PRN PO 03/11/17 12:15 (Zofran Odt) 4 mg Q6H PRN PO 03/11/17 12:15 Assessment/Plan Problem List: (1) Normal vaginal delivery ICD Codes: O80 - Encounter for full-term uncomplicated delivery Assessment and Plan pt doing well pain well managed with oral pain medication bonding and routine care Discharge Planning dc home tomorrow Yarely Brennan Mar 12, 2017 14:09
--- NOTE | 2017-03-12 14:19 | HHI.DCPOC ---
Discharge Care Plan Diagnosis: (1) Elevated BP without diagnosis of hypertension (2) Normal vaginal delivery Your Health Problems Are: Vaginal delivery Report Symptoms to Your Doctor -Temperature above 100.5 degrees -Redness, of incision or excessive or foul smelling drainage -Unusual pain or calf pain -Increased vaginal bleeding -Painful or difficulty urinating -Feelings of extreme sadness or anxiety after 2 weeks Goals to Promote Your Health * To prevent worsening of your condition and complications * To maintain your health at the optimal level Directions to Meet Your Goals Take your medications as prescribed Follow your dietary instruction Follow activity as directed Ensure plenty of rest for recovery Drink fluids for hydration Keep your appointments as scheduled Take your immunizations and boosters as scheduled If your symptoms worsen call your PCP, if no PCP go to Urgent Care Center or Emergency Room Smoking is Dangerous to Your Health. Avoid second hand smoke Call the 24-hour crisis hotline for domestic abuse at Yarely Brennan Mar 12, 2017 14:19
--- NOTE | 2017-03-12 14:23 | HHI.DS ---
Admission Date Mar 10, 2017 at 15:41 Discharge Date: Mar 13, 2017 Admitting Diagnosis term hypertension in induction of labor Diagnosis: (1) Elevated BP without diagnosis of hypertension ICD Codes: R03.0 - Elevated blood-pressure reading, without diagnosis of hypertension Status: Acute (2) Normal vaginal delivery ICD Codes: O80 - Encounter for full-term uncomplicated delivery Delivery Date: Mar 11, 2017 Vaginal Delivery: Normal : Male Brief History 40 weeks 6 dys elevated bp in office cervix closed Hospital Course cytotec indution LFT normal routine care Pt Condition on Discharge: Good Discharge Disposition: Discharge Home Discharge Instructions Diet Instructions: As Tolerated, No Restrictions Additional Diet Instructions: Drink at least 8 - 16 oz bottles of water a day Activities You Can Perform: Shower Only-No Bath, Sitz Bath Activities to Avoid: Lifting/Bending, Sexual Activity Additional Activity Instruc.: No driving until off pain medications Do not lift anything heavier than your baby in an carrier Follow up Referrals: [facility] - 1 Week @ [facility] Yarely Brennan Mar 12, 2017 14:23
[2017-03-13 08:15] VITALS: BP 123/82; PULSE 78; RESP 14; TEMP 98.1
[2017-03-13] MEDS: ACETAMINOPHEN 325 MG TAB PO PRN (08:18)
[2017-03-13] MEDS: IBUPROFEN 600 MG TAB PO PRN (08:18)
--- NOTE | 2017-03-13 14:14 | PD.PN.STU ---
Subjective Remarks Radha is a 27 y/o white female 2 days post normal vaginal delivery after 41 weeks. She is feeling well at this time and is happy with her family. She currently complains of 1 feeling dizziness that began today, predominantly with position changes such as getting up from the toilet. She denies fever, headache, vision changes, and SOB. She also complains of swelling in both her feet. She claims she is still experiencing bleeding that has settled to a constant level of what she believes would be a normal period. She wants to discuss control with Dr. Newsome to discuss the best method to address her endometriosis. She also wants to know if it is ok to walk her dog since she had perineal tearing during delivery. Objective Vitals Vital Signs Date Time Temp Pulse Resp B/P (MAP) Pulse Ox O2 Delivery O2 Flow Rate FiO2 03/13/17 08:15 98.1 78 14 123/82 (96) Result Diagram: 03/10/17182403/10/171824 Objective Remarks Pulm: Lungs clear to auscultation, no wheezes, rail, or rhonchi, Cardio: Normal rate and rhythm, no murmurs, rubs, or gallops Bilateral Pedal edema is noted on exam A/P Assessment and Plan 1. Circumcision Dr. Newsome will perform circumcision. Consent was obtained and guardians understand procedure 2. Dizziness Patient was counseled on drinking plenty fluids. She will notify if sxs worsen 3. Edema Patient was instructed to ambulate regularly and elevate feet above the heart to improve sxs. She will notify if sxs do not improve 3. Control Dr. Newsome will discuss control options and formulate a plan with the pt 4. Lacerations with suturing due to vaginal delivery Will discuss with patient appropriate wound care and follow-up 5. Follow-up for post care in the office next week Paul Wolff Mar 13, 2017 14:14
== END 2017-03-13 19:01 | disposition home or self-care (01) | DRG 775 ==
LOC: H2EA 15:41 → H1EA 03-11 16:04
PROVIDERS: ADMIT Obstetrics & Gynecology; ATTEND Obstetrics & Gynecology
PROC: 10E0XZZ Delivery of Products of Conception, External Approach (ICD-10-PCS; principal; 2017-03-11)
PROC: 0KQM0ZZ Repair Perineum Muscle, Open Approach (ICD-10-PCS; 2017-03-11)
PROC: 3E0P7GC Introduction of Other Therapeutic Substance into Female Reproductive, Via Natural or Artificial Opening (ICD-10-PCS; 2017-03-11)
DX: O48.0 Post-term pregnancy (principal); O99.824 Streptococcus B carrier state complicating childbirth; O70.1 Second degree perineal laceration during delivery; O69.81X0 Labor and delivery complicated by cord around neck, without compression, not applicable or unspecified; O13.4 Gestational [pregnancy-induced] hypertension without significant proteinuria, complicating childbirth; Z37.0 Single live birth; Z3A.40 40 weeks gestation of pregnancy
CPT/HCPCS: 80053; 81001; 84112; 85025; 86900; 86901; 87086; J2175; J2540; J3010; J7120